=== PATIENT | male | born 1990 | race Caucasian/White ===

== ENCOUNTER 2024-11-26 09:27 | Emergency (ER) | payer OTHER ==
[2024-11-26 10:02] VITALS: BP 124/87; PULSE 89; RESP 18; TEMP 97.9; BMI 23.1
== END 2024-11-26 11:18 | disposition home or self-care (01) ==
LOC: JERFT 09:27 → JER 09:27 → JERFT 11:18
PROC: 0H9QXZZ Drainage of Finger Nail, External Approach (ICD-10-PCS; principal; 2024-11-26)
DX: S60.112A Contusion of left thumb with damage to nail, initial encounter (principal); W23.0XXA Caught, crushed, jammed, or pinched between moving objects, initial encounter; Y99.0 Civilian activity done for income or pay
CPT/HCPCS: 73140-TC-LT-FY; 99283-25